=== PATIENT | male | born 1970 | race Caucasian/White ===

== ENCOUNTER 2019-01-14 05:21 | Day surgery (SDC) | payer OTHER ==
[2019-01-14] MEDS: CEFAZOLIN 2 GM/50 ML (PMX) 50 ML IVPB (05:30)
[2019-01-14] MEDS: SOD CHLORIDE 0.9% 1,000 ML IV (07:24)
[2019-01-14] MEDS ORDERED: LIDOCAINE 1% (MDV) 20 ML INJ (07:55)
[2019-01-14] MEDS ORDERED: PROPOFOL 20 ML (07:55)
[2019-01-14] MEDS ORDERED: MIDAZOLAM 1 MG/ML 2 ML INJ (07:55)
[2019-01-14] MEDS ORDERED: ROCURONIUM 50 MG INJ (07:55)
[2019-01-14] MEDS ORDERED: HYDROmorphONE 1 MG/5 ML IV SYRINGE IV ×3 (08:00)
[2019-01-14] MEDS ORDERED: PHENYLephrine (100 MCG/ML) 10ML SYG (08:07)
[2019-01-14] MEDS ORDERED: ROPIVACAINE 0.5 % 30 ML VIAL (08:07)
[2019-01-14] MEDS ORDERED: ONDANSETRON 4 MG INJ (08:23)
[2019-01-14] MEDS ORDERED: DEXAMETHASONE 4 MG/ML 5 ML INJ (08:23)
[2019-01-14] MEDS ORDERED: SUGAMMADEX SODIUM 200 MG/2 ML VIAL IV (08:45)
[2019-01-14] MEDS ORDERED: HYDROCODONE/APAP (5/325) TAB PO (09:00)
== END 2019-01-14 10:37 | disposition home or self-care (01) ==
LOC: SDS 05:21
DX: K80.10 Calculus of gallbladder with chronic cholecystitis without obstruction (principal)
CPT/HCPCS: 47562; 88304

== ENCOUNTER 2019-02-21 07:06 | Day surgery (SDC) | payer OTHER ==
[~2019-02-21 07:06] MED LIST: CEFAZOLIN 2 GM/50 ML (PMX) 50 ML IVPB; SOD CHLORIDE 0.9% 1,000 ML IV
[2019-02-21] MEDS: SOD CHLORIDE 0.9% 1,000 ML IV (07:58)
[2019-02-21] MEDS ORDERED: ROPIVACAINE 0.5 % 30 ML VIAL (08:50)
[2019-02-21] MEDS ORDERED: FENTAnyl 50 MCG/ML VIAL (08:50)
[2019-02-21] MEDS ORDERED: DIPHENHYDRAMINE 50 MG INJ IV (09:00)
[2019-02-21] MEDS ORDERED: METOCLOPRAMIDE 10 MG INJ IV (09:00)
[2019-02-21] MEDS ORDERED: HYDROmorphONE 1 MG/5 ML IV SYRINGE IV ×3 (09:00)
[2019-02-21] MEDS ORDERED: ALBUTEROL 0.083% (NEB) 2.5 MG/3 ML AMP HHN (09:00)
[2019-02-21] MEDS ORDERED: FENTAnyl 50 MCG/ML VIAL IV ×3 (09:00)
[2019-02-21] MEDS ORDERED: CEFAZOLIN 1 GM INJ (09:45)
[2019-02-21] MEDS ORDERED: LIDOCAINE 100 MG SYRINGE (09:45)
[2019-02-21] MEDS ORDERED: PROPOFOL 20 ML (09:45)
[2019-02-21] MEDS ORDERED: ROCURONIUM 50 MG INJ (09:45)
[2019-02-21] MEDS ORDERED: SUGAMMADEX SODIUM 200 MG/2 ML VIAL IV (09:45)
[2019-02-21] MEDS ORDERED: SUCCINYLCHOLINE CHLORIDE 100 MG/5 ML SYG IV (09:45)
[2019-02-21] MEDS: POLYMYXIN/BACITRACIN 1L IRRIG IRR (10:10)
[2019-02-21] MEDS: MEPERIDINE 25 MG INJ IV (10:57)
[2019-02-21] MEDS: ONDANSETRON 4 MG INJ IV (10:57)
[2019-02-21] MEDS: HYDROCODONE/APAP (5/325) TAB PO (11:05)
[2019-02-21] MEDS: HYDROmorphONE 1 MG/ML SYG IV (12:35)
== END 2019-02-21 12:38 | disposition home or self-care (01) ==
LOC: SDS 07:06
DX: K43.9 Ventral hernia without obstruction or gangrene (principal); I10 Essential (primary) hypertension; E66.9 Obesity, unspecified
CPT/HCPCS: 49653

== ENCOUNTER 2019-02-26 13:38 | Emergency (ER) | payer OTHER ==
[2019-02-26 14:22] LABS: ADD MAN DIFF? NO
[2019-02-26 14:26] LABS: WHITE BLOOD COUNT 7.9 10^3/ul (4.8-10.8)
[2019-02-26 14:26] LABS: BASOPHILS % 0.4 % (0.0-2.0); EOSINOPHILS # 0.1 10^3/ul (0.0-0.5); EOSINOPHILS % 1.5 % (0.0-7.0); HEMOGLOBIN 14.8 g/dl (14.0-18.0); LYMPHOCYTES # 1.6 10^3/ul (0.8-2.9); MEAN CORPUSCULAR HEMOGLOBIN 28.1 pg (29.0-33.0); MEAN CORPUSCULAR HGB CONC 32.9 g/dl (32.0-37.0); MEAN CORPUSCULAR VOLUME 85.4 fl (82.0-101.0); MEAN PLATELET VOLUME 10.2 fl (7.4-10.4); MONOCYTE # 0.5 10^3/ul (0.3-0.9); MONOCYTES % 6.4 % (0.0-11.0); NEUTROPHIL # 5.6 10^3/ul (1.6-7.5); NEUTROPHILS % 71.4 % (39.0-77.0); PLATELET COUNT 239 10^3/UL (140-415); RED BLOOD COUNT 5.27 10^6/ul (4.70-6.10); RED CELL DISTRIBUTION WIDTH 12.6 % (11.5-14.5)
[2019-02-26 14:42] LABS: ALANINE AMINOTRANSFERASE 46 IU/L (13-69); ALBUMIN 4.4 g/dl (3.3-4.9); ALBUMIN/GLOBULIN RATIO 1.22; ALKALINE PHOSPHATASE 84 IU/L (42-121); ANION GAP 10 (5-13); ASPARTATE AMINO TRANSFERASE 28 IU/L (15-46); BILIRUBIN,INDIRECT 0.4 mg/dl (0-1.1); BILIRUBIN,TOTAL 0.4 mg/dl (0.2-1.3); BLOOD UREA NITROGEN 14 mg/dl (7-20); CALCIUM 9.5 mg/dl (8.4-10.2); CARBON DIOXIDE 27 mmol/L (21-31); CHLORIDE 105 mmol/L (97-110); Estimated GFR > 60 mL/min (>60); GLUCOSE 141 mg/dl (70-220); POTASSIUM 3.8 mmol/L (3.5-5.1); SODIUM 142 mmol/L (135-144)
== END 2019-02-26 20:50 | disposition left against medical advice (07) ==
LOC: E/R 20:50
DX: R10.9 Unspecified abdominal pain (principal); R14.0 Abdominal distension (gaseous); Z87.891 Personal history of nicotine dependence
CPT/HCPCS: 74176; 80053; 85025; 99284-25